=== PATIENT | female | born 1990 | race Caucasian/White ===

== ENCOUNTER 2020-06-25 12:07 | Emergency (ER) | payer OTHER ==
[2020-06-25 13:00] LABS: BASOPHIL % 0.2 % (0.0-0.4); Basophil (Absolute #) 0.02 (0-0.4); Eosinophil % 2.3 % (0.00-5.0); Eosinophil (Absolute #) 0.22 (0-0.5); Hemoglobin 11.6 gm/dl (12.0-16.0); Lymphocyte (Absolute #) 2.17 (1.0-4.6); Lymphocytes % 22.6 % (24.0-44.0); Mean Cell Volume 84.9 fl (78-100); Mean Corpuscular Hemoglobin 26.6 pg (26-32); Mean Corpuscular Hgb Concent. 31.4 g/dl (32-36); Mean Platelet Volume 8.8 fl (7.5-11.0); Monocyte (Absolute #) 0.61 (0.0-1.3); Monocytes % 6.3 % (0.0-12.0); Neutrophil % 68.6 % (36.0-66.0); Platelet Count 302 K/mm3 (150-450); Red Blood Count 4.36 M/mm3 (4.1-5.4); Red Cell Distribution Width 14.3 % (11.5-14.0); White Blood Count 9.6 K/mm3 (4.0-10.5)
[2020-06-25 13:24] LABS: ALBUMIN 3.9 g/dL (3.5-5.0); ALKALINE PHOSPHATASE 50 U/L (38-126); ANION GAP 10.7 MEQ/L (5-15); BLOOD UREA NITROGEN 11 mg/dL (7-17); CHLORIDE 103 mmol/L (98-107); Calcium 9.1 mg/dL (8.4-10.2); Carbon Dioxide 28 mmol/L (22-30); Creatinine 1 0.64 mg/dL (0.52-1.04); EST GLOMERULAR FILTRATION RATE > 60.0 ML/MIN; Glucose 98 mg/dL (74-106); HCG, Quantitative (Inhouse) 1452.1 mIU/ml; Potassium 3.9 mmol/L (3.5-5.1); SGOT/AST 19 U/L (14-36); SGPT/ALT 21 U/L (0-35); SODIUM 138 mmol/L (137-145)
[2020-06-25 14:10] LABS: Appearance SLIGHTLY CLOUDY (CLEAR); Bilirubin NEGATIVE (NEGATIVE); Blood NEGATIVE Ery/ul (0-5); Epithelial Cells RARE /HPF (FEW); Glucose NEGATIVE (NEGATIVE); Ketones NEGATIVE (NEGATIVE); Leukocyte Esterase TRACE (NEGATIVE); Mucus SLIGHT /HPF (NEGATIVE); Nitrite NEGATIVE (NEGATIVE); Protein,Urine Dip NEGATIVE (Negative); RBC 0-2 /HPF (0-2); Specific Gravity 1.016 (1.005-1.025); Urobilinogen NEGATIVE mg/dL (0-1)
[2020-06-25] MEDS ORDERED: GI COCKTAIL 45 ML (Maalox/Lidocaine) PO ONE (14:16)
[2020-06-25] MEDS ORDERED: MAALOX ES 30 ML UNIT DOSE ONE (14:18)
[2020-06-25] MEDS ORDERED: XYLOCAINE HCl Viscous ONE (14:18)
[2020-06-25 14:34] VITALS: BP 138/62; PULSE 80; O2SAT 98
[2020-06-25 14:45] LABS: ABO TYPING O; Antibody Screen NEGATIVE (NEGATIVE); RH TYPING POSITIVE
--- NOTE | 2020-06-25 14:47 | ERPHSYRPT ---
- History of Present Illness Time Seen by Provider: 06/25/20 12:38 Source: patient Exam Limitations: no limitations Patient Subjective Stated Complaint: -left sided pain Triage Nursing Assessment: Patient ambulated back to ED and transferred self to bed. Patient A+O X3. Patient's skin pink, warm and dry. Patient complains of left sided abdominal pain constant aching pain 5/10 for two weeks. Patient took test due to late period and had positive results. Patient had miscarriage with last and wants to get checked out. Physician History: 29 years old female presented in the ER with chief complaint of left upper quadrant and epigastric dull aching discomfort for the last 2 weeks intermitt ently lasting for few minutes to hour, aggravated with movements and relieved on its own. Denies any associated nausea or vomiting. No flank or lower abdominal pain. No urinary symptoms. Patient checked her home test x2 because she was 2 weeks late from her cycle and is positive and wants to get it confirmed. Denies any vaginal bleeding discharge, pelvic cramping/pain. Timing/Duration: week(s) (2), intermittent Severity: moderate Modifying Factors: Improves With: immobilization. Worsens With: movement Associated Symptoms: abdominal pain Allergies/Adverse Reactions: amoxicillin Allergy (Verified 06/25/20 12:18) sulfamethoxazole [From Octra] Allergy (Verified 06/25/20 12:18) trimethoprim [From Octra] Allergy (Verified 06/25/20 12:18) Home Medications: Armodafinil [Nuvigil] 1 tab PO DAILY 06/25/20 [History] Gabapentin 300 mg [Neurontin 300 mg] 1 tab PO HS 06/25/20 [History] Omeprazole 1 tab PO DAILY 06/25/20 [History] Sertraline HCl [Zoloft] 200 mg PO DAILY 06/25/20 [History] Hx Influenza Vaccination/Date Given: Yes Hx Pneumococcal Vaccination/Date Given: No Immunizations Up to Date: Yes Travel Risk - International Travel Have you traveled outside of the country in past 3 weeks: No - Coronavirus Screening Are you exhibiting any of the following symptoms?: No Close contact with a COVID-19 positive Pt in past 14-21 Days: No - Vaccine Status Have you recieved a Covid-19 vaccination: Yes [employer]: [employer] - Vaccination Dates Date of 2cond Vaccination (if applicable): 05/16/2020 - Review of Systems Constitutional: No Symptoms Eyes: No Symptoms Ears, Nose, & Throat: No Symptoms Respiratory: No Symptoms Cardiac: No Symptoms Abdominal/Gastrointestinal: Abdominal Pain Genitourinary Symptoms: No Symptoms Musculoskeletal: No Symptoms Skin: No Symptoms Neurological: No Symptoms Psychological: No Symptoms Endocrine: No Symptoms Hematologic/Lymphatic: No Symptoms Immunological/Allergic: No Symptoms - Past Medical History Pertinent Past Medical History: Yes Neurological History: Seizures ENT History: No Pertinent History Cardiac History: No Pertinent History Respiratory History: No Pertinent History Endocrine Medical History: No Pertinent History Musculoskeletal History: No Pertinent History GI Medical History: No Pertinent History History: No Pertinent History Psycho-Social History: Anxiety, Depression Female Reproductive Disorders: No Pertinent History Other Medical History: insomnia, miscarriage - Past Surgical History Past Surgical History: Yes Neuro Surgical History: No Pertinent History Cardiac: No Pertinent History Respiratory: No Pertinent History Gastrointestinal: Appendectomy Genitourinary: No Pertinent History Musculoskeletal: Orthopedic Surgery Female Surgical History: No Pertinent History Other Surgical History: Carpal tunnel release surgery - Social History Smoking Status: Current every day smoker How long have you smoked: years Exposure to second hand smoke: Yes Drug Use: none Patient Lives Alone: No - Female History Hx Last Menstrual Period: May 25, 2020 Hx Now: Yes - Nursing Vital Signs Nursing Vital Signs: Initial Vital Signs Temperature 97.0 F 06/25/20 12:20 Pulse Rate 86 06/25/20 12:20 Respiratory Rate 18 06/25/20 12:20 Blood Pressure 140/67 06/25/20 12:20 O2 Sat by Pulse Oximetry 96 06/25/20 12:20 Pain Scale Pain Intensity 3 - Physical Exam General Appearance: no apparent distress, alert, anxiety Eye Exam: PERRL/EOMI Ears, Nose, Throat Exam: normal ENT inspection, TMs normal, pharynx normal Neck Exam: normal inspection, non-tender, supple, full range of motion Respiratory Exam: normal breath sounds, lungs clear Cardiovascular Exam: regular rate/rhythm, normal heart sounds Gastrointestinal/Abdomen Exam: soft, normal bowel sounds, tenderness (Minimal tenderness left upper quadrant), No guarding, No rebound Back Exam: normal inspection, normal range of motion, No CVA tenderness Extremity Exam: normal inspection, normal range of motion Neurologic Exam: alert, oriented x 3, cooperative Skin Exam: normal color SpO2 Interpretation: normal SpO2: 98 O2 Delivery: Room Air Ordered Tests: Active Orders 24 hr Category Date Time Status CBC W DIFF Stat Lab 06/25/20 12:45 Completed CMP Stat Lab 06/25/20 12:45 Completed HCG QUALITATIVE,SERUM Stat Lab 06/25/20 12:45 Completed HCG, Quantitative (Inhouse) Stat Lab 06/25/20 12:45 Completed UA W/RFX UR CULTURE Stat Lab 06/25/20 12:31 Completed Medication Summary Discontinued Medications Generic Name Dose Route Start Last Admin Trade Name Freq PRN Reason Stop Dose Admin Al Hydrox/Mg Hydrox/Simethicone Confirm 06/25/20 14:18 Maalox Es 30 Ml Unit Dose Administered 06/25/20 14:19 Dose 30 ml .ROUTE .STK-MED ONE Lidocaine HCl Confirm 06/25/20 14:18 Xylocaine Hcl Viscous * Administered 06/25/20 14:19 Dose 15 ml .ROUTE .STK-MED ONE Magnesium Hydroxide 45 ml 06/25/20 14:16 06/25/20 14:19 Gi Cocktail 45 Ml (Maalox/Lidocaine) PO 06/25/20 14:17 45 ml STAT ONE Administration Lab/Rad Data: Laboratory Result Diagrams 06/25/20 12:45 06/25/20 12:45 Laboratory Results 06/25/20 06/25/20 06/25/20 Range/Units 12:45 12:45 12:45 WBC (4.0-10.5) K/mm3 RBC (4.1-5.4) M/mm3 Hgb (12.0-16.0) gm/dl Hct (35-47) % MCV (78-100) fl MCH (26-32) pg MCHC (32-36) g/dl RDW (11.5-14.0) % Plt Count (150-450) K/mm3 MPV (7.5-11.0) fl Gran % (36.0-66.0) % Eos # (Auto) (0-0.5) Absolute Lymphs (auto) (1.0-4.6) Absolute Monos (auto) (0.0-1.3) Lymphocytes % (24.0-44.0) % Monocytes % (0.0-12.0) % Eosinophils % (0.00-5.0) % Basophils % (0.0-0.4) % Absolute Granulocytes (1.4-6.9) Basophils # (0-0.4) Sodium 138 (137-145) mmol/L Potassium 3.9 (3.5-5.1) mmol/L Chloride 103 (98-107) mmol/L Carbon Dioxide 28 (22-30) mmol/L Anion Gap 10.7 (5-15) MEQ/L BUN 11 (7-17) mg/dL Creatinine 0.64 (0.52-1.04) mg/dL Estimated GFR > 60.0 ML/MIN Glucose 98 (74-106) mg/dL Calcium 9.1 (8.4-10.2) mg/dL Total Bilirubin 0.30 (0.2-1.3) mg/dL AST 19 (14-36) U/L ALT 21 (0-35) U/L Alkaline Phosphatase 50 (38-126) U/L Serum Total Protein 7.0 (6.3-8.2) g/dL Albumin 3.9 (3.5-5.0) g/dL Beta HCG, Quant 1452.1 mIU/ml Serum , Qual POSITIVE (Negative) Urine Color (YELLOW) Urine Appearance (CLEAR) Urine pH (5-6) Ur Specific [place] (1.005-1.025) Urine Protein (Negative) Urine Ketones (NEGATIVE) Urine Blood (0-5) Armando/ul Urine Nitrite (NEGATIVE) Urine Bilirubin (NEGATIVE) Urine Urobilinogen (0-1) mg/dL Ur Leukocyte Esterase (NEGATIVE) Urine WBC (Auto) (0-5) /HPF Urine RBC (Auto) (0-2) /HPF U Epithel Cells (Auto) (FEW) /HPF Urine Bacteria (Auto) (NEGATIVE) /HPF Urine Mucus (Auto) (NEGATIVE) /HPF Urine Culture Reflexed (NO) Urine Glucose (NEGATIVE) mg/dL ABO Group O Rh Factor POSITIVE Antibody Screen NEGATIVE (NEGATIVE) 06/25/20 06/25/20 Range/Units 12:45 12:31 WBC 9.6 (4.0-10.5) K/mm3 RBC 4.36 (4.1-5.4) M/mm3 Hgb 11.6 L (12.0-16.0) gm/dl Hct 37.0 (35-47) % MCV 84.9 (78-100) fl MCH 26.6 (26-32) pg MCHC 31.4 L (32-36) g/dl RDW 14.3 H (11.5-14.0) % Plt Count 302 (150-450) K/mm3 MPV 8.8 (7.5-11.0) fl Gran % 68.6 H (36.0-66.0) % Eos # (Auto) 0.22 (0-0.5) Absolute Lymphs (auto) 2.17 (1.0-4.6) Absolute Monos (auto) 0.61 (0.0-1.3) Lymphocytes % 22.6 L (24.0-44.0) % Monocytes % 6.3 (0.0-12.0) % Eosinophils % 2.3 (0.00-5.0) % Basophils % 0.2 (0.0-0.4) % Absolute Granulocytes 6.60 (1.4-6.9) Basophils # 0.02 (0-0.4) Sodium (137-145) mmol/L Potassium (3.5-5.1) mmol/L Chloride (98-107) mmol/L Carbon Dioxide (22-30) mmol/L Anion Gap (5-15) MEQ/L BUN (7-17) mg/dL Creatinine (0.52-1.04) mg/dL Estimated GFR ML/MIN Glucose (74-106) mg/dL Calcium (8.4-10.2) mg/dL Total Bilirubin (0.2-1.3) mg/dL AST (14-36) U/L ALT (0-35) U/L Alkaline Phosphatase (38-126) U/L Serum Total Protein (6.3-8.2) g/dL Albumin (3.5-5.0) g/dL Beta HCG, Quant mIU/ml Serum , Qual (Negative) Urine Color YELLOW (YELLOW) Urine Appearance SLIGHTLY CLOUDY (CLEAR) Urine pH 7.0 (5-6) Ur Specific [place] 1.016 (1.005-1.025) Urine Protein NEGATIVE (Negative) Urine Ketones NEGATIVE (NEGATIVE) Urine Blood NEGATIVE (0-5) Armando/ul Urine Nitrite NEGATIVE (NEGATIVE) Urine Bilirubin NEGATIVE (NEGATIVE) Urine Urobilinogen NEGATIVE (0-1) mg/dL Ur Leukocyte Esterase TRACE (NEGATIVE) Urine WBC (Auto) 3-5 (0-5) /HPF Urine RBC (Auto) 0-2 (0-2) /HPF U Epithel Cells (Auto) RARE (FEW) /HPF Urine Bacteria (Auto) NONE (NEGATIVE) /HPF Urine Mucus (Auto) SLIGHT (NEGATIVE) /HPF Urine Culture Reflexed NO (NO) Urine Glucose NEGATIVE (NEGATIVE) mg/dL ABO Group Rh Factor Antibody Screen (NEGATIVE) - Progress Progress: improved Progress Note: 06/25/20 14:45 She is given GI cocktail and her left upper quadrant discomfort is improved. She has a positive hCG qualitative followed by quant in 1000. She does not have any pelvic pain tenderness or cramping. I believe patient has acid reflux and will give her Pepcid to take as needed. She does not have any pain or vaginal bleeding, tachycardia, hypotension suggesting ectopic needing immediate ultrasound but would refer her outpatient with her OB Dr. Murphy to have ultrasound done at [facility]. Discussed signs symptoms of worsening needing return to ER which she seemed understanding. Stable for discharge. Counseled pt/family regarding: lab results, diagnosis, need for follow-up - Departure Departure Disposition: Extended Care Facility Clinical Impression: Qualifiers: Weeks of gestation: less than 8 weeks Qualified Code(s): Z3A.01 - Less than 8 weeks gestation of GERD (gastroesophageal reflux disease) Qualifiers: Esophagitis presence: without esophagitis Qualified Code(s): K21.9 - Gastro- esophageal reflux disease without esophagitis Condition: Stable Critical Care Time: No Referrals: DOCTOR,NO FAMILY [Primary Care Provider] - (Dr. Upton OB at [facility] Call tomorrow for appointment in the next few days.) Instructions: Ectopic (DC), Symptoms Additional Instructions: Drink plenty of fluids. Take Tylenol for pain only. Take Pepcid as needed for acid reflux. Do not take ibuprofen or any other NSAIDs. Follow-up with your primary OB for reevaluation. Call your primary care doctor in the morning for adjustment in routine medications according to safety. Return to ER for worsening pain or if develop vaginal bleeding discharge/cramping. Prescriptions: Famotidine 20 mg [Pepcid 20 MG] 20 mg PO BID PRN #60 tablet PRN Reason: Indigestion Vits W-Ca,Fe,FA(<1Mg) [] 1 each PO DAILY 90 Days #90 tablet
== END 2020-06-25 15:06 | disposition home or self-care (01) ==
LOC: ED 12:07
DX: R10.12 Left upper quadrant pain (principal); R10.13 Epigastric pain; K21.9 Gastro-esophageal reflux disease without esophagitis; Z3A.01 Less than 8 weeks gestation of pregnancy
CPT/HCPCS: 36415; 80053; 81001; 81025; 84702; 85025; 86850; 86900; 86901; 99283; 99291; A9270-GY

== ENCOUNTER 2020-07-10 14:20 | Emergency (ER) | payer OTHER ==
[2020-07-10 14:56] LABS: Absolute Neutrophil Ct (ANC) 8.16 (1.4-6.9); BASOPHIL % 0.2 % (0.0-0.4); Basophil (Absolute #) 0.02 (0-0.4); Eosinophil % 1.4 % (0.00-5.0); Eosinophil (Absolute #) 0.15 (0-0.5); Hemoglobin 12.9 gm/dl (12.0-16.0); Lymphocyte (Absolute #) 2.12 (1.0-4.6); Lymphocytes % 19.3 % (24.0-44.0); Mean Cell Volume 82.8 fl (78-100); Mean Corpuscular Hemoglobin 26.7 pg (26-32); Mean Corpuscular Hgb Concent. 32.3 g/dl (32-36); Mean Platelet Volume 8.4 fl (7.5-11.0); Monocyte (Absolute #) 0.54 (0.0-1.3); Monocytes % 4.9 % (0.0-12.0); Neutrophil % 74.2 % (36.0-66.0); Platelet Count 299 K/mm3 (150-450); Red Blood Count 4.83 M/mm3 (4.1-5.4)
[2020-07-10 15:08] LABS: ALBUMIN 4.4 g/dL (3.5-5.0); ALKALINE PHOSPHATASE 62 U/L (38-126); ANION GAP 12.9 MEQ/L (5-15); BLOOD UREA NITROGEN 9 mg/dL (7-17); CHLORIDE 102 mmol/L (98-107); Calcium 9.7 mg/dL (8.4-10.2); Carbon Dioxide 26 mmol/L (22-30); Creatinine 1 0.55 mg/dL (0.52-1.04); EST GLOMERULAR FILTRATION RATE > 60.0 ML/MIN; Potassium 4.1 mmol/L (3.5-5.1); SGOT/AST 18 U/L (14-36); SGPT/ALT 19 U/L (0-35); SODIUM 138 mmol/L (137-145); Total Protein 7.7 g/dL (6.3-8.2)
[2020-07-10 15:09] LABS: Appearance CLOUDY (CLEAR); Bacteria FEW /HPF (NEGATIVE); Bilirubin NEGATIVE (NEGATIVE); Blood NEGATIVE Ery/ul (0-5); Epithelial Cells MANY /HPF (FEW); Glucose NEGATIVE (NEGATIVE); Ketones NEGATIVE (NEGATIVE); Leukocyte Esterase MODERATE (NEGATIVE); Mucus SLIGHT /HPF (NEGATIVE); Nitrite NEGATIVE (NEGATIVE); Protein,Urine Dip NEGATIVE (Negative); RBC 0-2 /HPF (0-2); Specific Gravity 1.017 (1.005-1.025); Urobilinogen NEGATIVE mg/dL (0-1)
[2020-07-10 15:15] LABS: Glucose 95 mg/dL (74-106)
--- NOTE | 2020-07-10 15:55 | ERPHSYRPT ---
- History of Present Illness Time Seen by Provider: 07/10/20 14:50 Source: patient Exam Limitations: no limitations Patient Subjective Stated Complaint: pt here for vomiting, and lightheaded. she states she is only vomiting x2 days, no vaginal bleeding or cramps Triage Nursing Assessment: pt alert, walked in, resp easy, skin w/d/p. abd soft, Physician History: Patient is a 29-year-old female who is currently 7 weeks presents to our ED with complaints of vomiting and lightheadedness. Patient states she vomited 2 times. Patient states she is eating well however only had a granola bar this morning. No change in urine output. No fever. No vaginal discharge or pelvic pain. Patient symptoms are mild in intensity. No specific worsening improving factors. Patient denies swelling of her feet. Patient voices no other complaints or concerns at this time. Timing/Duration: today Severity: moderate Modifying Factors: Improves With: nothing Associated Symptoms: No abdominal pain, No heartburn, No diaphoresis, No cough, No chills, No chest pain, No syncope, No seizure, No weakness Allergies/Adverse Reactions: amoxicillin Allergy (Verified 07/10/20 14:39) sulfamethoxazole [From ] Allergy (Verified 07/10/20 14:39) trimethoprim [From ] Allergy (Verified 07/10/20 14:39) Home Medications: Sertraline HCl [Zoloft] 200 mg PO DAILY 06/25/20 [History] Hx Influenza Vaccination/Date Given: Yes Hx Pneumococcal Vaccination/Date Given: No Immunizations Up to Date: Yes Travel Risk - International Travel Have you traveled outside of the country in past 3 weeks: No - Coronavirus Screening Are you exhibiting any of the following symptoms?: No Close contact with a COVID-19 positive Pt in past 14-21 Days: No - Vaccine Status Have you recieved a Covid-19 vaccination: Yes [employer]: [employer] - Vaccination Dates Date of 2cond Vaccination (if applicable): 05/16/20 - Review of Systems Constitutional: No Symptoms, No Fever, No Chills Eyes: No Symptoms Ears, Nose, & Throat: No Symptoms Respiratory: No Symptoms, No Cough, No Dyspnea Cardiac: No Symptoms, No Chest Pain, No Edema, No Syncope Abdominal/Gastrointestinal: No Symptoms, No Abdominal Pain, No Nausea, No Vomiting, No Diarrhea Genitourinary Symptoms: No Symptoms, No Dysuria Musculoskeletal: No Symptoms, No Back Pain, No Neck Pain Skin: No Symptoms, No Rash Neurological: No Symptoms, No Dizziness, No Focal Weakness, No Sensory Changes Psychological: No Symptoms Endocrine: No Symptoms Hematologic/Lymphatic: No Symptoms Immunological/Allergic: No Symptoms All Other Systems: Reviewed and Negative - Past Medical History Pertinent Past Medical History: Yes Neurological History: Seizures ENT History: No Pertinent History Cardiac History: No Pertinent History Respiratory History: No Pertinent History Endocrine Medical History: No Pertinent History Musculoskeletal History: No Pertinent History GI Medical History: No Pertinent History History: No Pertinent History Psycho-Social History: Anxiety, Depression Female Reproductive Disorders: No Pertinent History Other Medical History: insomnia, miscarriage - Past Surgical History Past Surgical History: Yes Neuro Surgical History: No Pertinent History Cardiac: No Pertinent History Respiratory: No Pertinent History Gastrointestinal: Appendectomy Genitourinary: No Pertinent History Musculoskeletal: Orthopedic Surgery Female Surgical History: No Pertinent History Other Surgical History: Carpal tunnel release surgery - Social History Smoking Status: Current every day smoker How long have you smoked: years Exposure to second hand smoke: Yes Drug Use: none Patient Lives Alone: No - Female History Hx Last Menstrual Period: may 25 Hx Now: Yes - Nursing Vital Signs Nursing Vital Signs: Initial Vital Signs Temperature 97.8 F 07/10/20 14:32 Pulse Rate 77 07/10/20 14:32 Respiratory Rate 18 07/10/20 14:32 Blood Pressure 122/78 07/10/20 14:32 O2 Sat by Pulse Oximetry 98 07/10/20 14:32 Pain Scale Pain Intensity 0 - Physical Exam General Appearance: no apparent distress, alert Eye Exam: PERRL/EOMI, eyes nml inspection Ears, Nose, Throat Exam: normal ENT inspection, TMs normal, pharynx normal, moist mucous membranes Neck Exam: normal inspection, non-tender, supple, full range of motion Respiratory Exam: normal breath sounds, lungs clear, No respiratory distress Cardiovascular Exam: regular rate/rhythm, normal heart sounds, normal peripheral pulses Gastrointestinal/Abdomen Exam: soft, normal bowel sounds, No tenderness, No mass Back Exam: normal inspection, normal range of motion, No CVA tenderness, No vertebral tenderness Extremity Exam: normal inspection, normal range of motion, pelvis stable Neurologic Exam: alert, oriented x 3, cooperative, normal mood/affect, nml cerebellar function, nml station & gait, sensation nml, No motor deficits Skin Exam: normal color, warm, dry, No rash Lymphatic Exam: No adenopathy SpO2 Interpretation: normal SpO2: 98 O2 Delivery: Room Air - Course Nursing assessment & vital signs reviewed: Yes EKG Interpreted by Me: RATE (57), Sinus Rhythm, NORMAL AXIS, NORMAL INTERVALS Ordered Tests: Active Orders 24 hr Category Date Time Status IV Insertion STAT Care 07/10/20 15:54 Active CBC W DIFF Stat Lab 07/10/20 14:53 Completed CMP Stat Lab 07/10/20 14:53 Completed CULTURE,URINE Stat Lab 07/10/20 14:47 Received HCG, Quantitative (Inhouse) Stat Lab 07/10/20 15:54 Ordered LIPASE Stat Lab 07/10/20 15:54 Ordered TROPONIN Q3H Lab 07/10/20 16:00 Completed TROPONIN Q3H Lab 07/10/20 19:00 Ordered TROPONIN Q3H Lab 07/10/20 22:00 Ordered TROPONIN Q3H Lab 07/11/20 01:00 Ordered TROPONIN Q3H Lab 07/11/20 04:00 Ordered UA W/RFX UR CULTURE Stat Lab 07/10/20 14:47 Completed Medication Summary Generic Name Dose Route Start Last Admin Trade Name Freq PRN Reason Stop Dose Admin Sodium Chloride 1,000 mls @ 100 mls/hr 07/10/20 16:00 07/10/20 16:18 Sodium Chloride 0.9% 1000 Ml IV 08/09/20 15:59 100 mls/hr .Q10H MO Administration Discontinued Medications Generic Name Dose Route Start Last Admin Trade Name Freq PRN Reason Stop Dose Admin Nitrofurantoin Macrocrystals 100 mg 07/10/20 17:32 Macrobid 100mg Capsule PO 07/10/20 17:33 ONCE STA Lab/Rad Data: Laboratory Result Diagrams 07/10/20 14:53 07/10/20 14:53 Laboratory Results 07/10/20 07/10/20 07/10/20 Range/Units 16:00 14:53 14:53 WBC 11.0 H (4.0-10.5) K/mm3 RBC 4.83 (4.1-5.4) M/mm3 Hgb 12.9 (12.0-16.0) gm/dl Hct 40.0 (35-47) % MCV 82.8 (78-100) fl MCH 26.7 (26-32) pg MCHC 32.3 (32-36) g/dl RDW 14.0 (11.5-14.0) % Plt Count 299 (150-450) K/mm3 MPV 8.4 (7.5-11.0) fl Gran % 74.2 H (36.0-66.0) % Eos # (Auto) 0.15 (0-0.5) Absolute Lymphs (auto) 2.12 (1.0-4.6) Absolute Monos (auto) 0.54 (0.0-1.3) Lymphocytes % 19.3 L (24.0-44.0) % Monocytes % 4.9 (0.0-12.0) % Eosinophils % 1.4 (0.00-5.0) % Basophils % 0.2 (0.0-0.4) % Absolute Granulocytes 8.16 H (1.4-6.9) Basophils # 0.02 (0-0.4) Sodium 138 (137-145) mmol/L Potassium 4.1 (3.5-5.1) mmol/L Chloride 102 (98-107) mmol/L Carbon Dioxide 26 (22-30) mmol/L Anion Gap 12.9 (5-15) MEQ/L BUN 9 (7-17) mg/dL Creatinine 0.55 (0.52-1.04) mg/dL Estimated GFR > 60.0 ML/MIN Glucose 95 (74-106) mg/dL Calcium 9.7 (8.4-10.2) mg/dL Total Bilirubin 0.30 (0.2-1.3) mg/dL AST 18 (14-36) U/L ALT 19 (0-35) U/L Alkaline Phosphatase 62 (38-126) U/L Troponin I < 0.012 (0.000-0.034) ng/mL Serum Total Protein 7.7 (6.3-8.2) g/dL Albumin 4.4 (3.5-5.0) g/dL Urine Color (YELLOW) Urine Appearance (CLEAR) Urine pH (5-6) Ur Specific [place] (1.005-1.025) Urine Protein (Negative) Urine Ketones (NEGATIVE) Urine Blood (0-5) Armando/ul Urine Nitrite (NEGATIVE) Urine Bilirubin (NEGATIVE) Urine Urobilinogen (0-1) mg/dL Ur Leukocyte Esterase (NEGATIVE) Urine WBC (Auto) (0-5) /HPF Urine RBC (Auto) (0-2) /HPF U Epithel Cells (Auto) (FEW) /HPF Urine Bacteria (Auto) (NEGATIVE) /HPF Urine Mucus (Auto) (NEGATIVE) /HPF Urine Culture Reflexed (NO) Urine Glucose (NEGATIVE) mg/dL 07/10/20 Range/Units 14:47 WBC (4.0-10.5) K/mm3 RBC (4.1-5.4) M/mm3 Hgb (12.0-16.0) gm/dl Hct (35-47) % MCV (78-100) fl MCH (26-32) pg MCHC (32-36) g/dl RDW (11.5-14.0) % Plt Count (150-450) K/mm3 MPV (7.5-11.0) fl Gran % (36.0-66.0) % Eos # (Auto) (0-0.5) Absolute Lymphs (auto) (1.0-4.6) Absolute Monos (auto) (0.0-1.3) Lymphocytes % (24.0-44.0) % Monocytes % (0.0-12.0) % Eosinophils % (0.00-5.0) % Basophils % (0.0-0.4) % Absolute Granulocytes (1.4-6.9) Basophils # (0-0.4) Sodium (137-145) mmol/L Potassium (3.5-5.1) mmol/L Chloride (98-107) mmol/L Carbon Dioxide (22-30) mmol/L Anion Gap (5-15) MEQ/L BUN (7-17) mg/dL Creatinine (0.52-1.04) mg/dL Estimated GFR ML/MIN Glucose (74-106) mg/dL Calcium (8.4-10.2) mg/dL Total Bilirubin (0.2-1.3) mg/dL AST (14-36) U/L ALT (0-35) U/L Alkaline Phosphatase (38-126) U/L Troponin I (0.000-0.034) ng/mL Serum Total Protein (6.3-8.2) g/dL Albumin (3.5-5.0) g/dL Urine Color YELLOW (YELLOW) Urine Appearance CLOUDY (CLEAR) Urine pH 6.0 (5-6) Ur Specific [place] 1.017 (1.005-1.025) Urine Protein NEGATIVE (Negative) Urine Ketones NEGATIVE (NEGATIVE) Urine Blood NEGATIVE (0-5) Armando/ul Urine Nitrite NEGATIVE (NEGATIVE) Urine Bilirubin NEGATIVE (NEGATIVE) Urine Urobilinogen NEGATIVE (0-1) mg/dL Ur Leukocyte Esterase MODERATE (NEGATIVE) Urine WBC (Auto) 16-25 (0-5) /HPF Urine RBC (Auto) 0-2 (0-2) /HPF U Epithel Cells (Auto) MANY (FEW) /HPF Urine Bacteria (Auto) FEW (NEGATIVE) /HPF Urine Mucus (Auto) SLIGHT (NEGATIVE) /HPF Urine Culture Reflexed YES (NO) Urine Glucose NEGATIVE (NEGATIVE) mg/dL - Progress Progress: improved Progress Note: Patient reassessed. She states she feels hungry wants to eat. Orthostatics were negative. Patient currently asymptomatic. Vitals are stable. Labs are normal. IV fluids infused. EKG normal sinus rhythm. Patient's fetus is 7 weeks. She is having no pelvic or vaginal complaints. We will discharge patient home at this time. Patient will follow up with her OB this week for further evaluation and treatment. UA suggestive of UTI. Will give patient a dose of Macrobid prior to discharge. A prescription for the same will be forwarded to patient's pharmacy. Patient has plans to follow-up with her OB physician. Patient given contact number Dr. Snow our no doc for the day in the event that she cannot follow-up with her OB physician. 07/10/20 17:29 07/10/20 17:34 Counseled pt/family regarding: lab results, diagnosis, need for follow-up - Departure Departure Disposition: Home Clinical Impression: UTI (urinary tract infection), Lightheadedness Condition: Stable Critical Care Time: No Referrals: DOCTOR,NO FAMILY [Primary Care Provider] - MANJINDER SNOW MD [ACTIVE STAFF] - Additional Instructions: Discharge/Care Plan SHARRON CHERRY was seen on 07/10/20 in the Emergency Room. The patient was counseled regarding Diagnosis,Lab results, Imaging studies, need for follow up and when to return to the Emergency Room. Prescriptions given: Discharge Note I have spoken with the patient and/or caregivers. I have explained the patient's condition, diagnosis and treatment plan based on the information available to me at this time. I have answered the patient's and/or caregiver's questions and addressed any concerns. The patient and/or caregivers have as good understanding of the patient's diagnosis, condition and treatment plan as can be expected at this point. The vital signs have been stable. The patient's condition is stable and appropriate for discharge from the emergency department. The patient will pursue further outpatient evaluation with the primary care physician or other designated or consulting physician as outlined in the discharge instructions. The patient and/or caregivers are agreeable to this plan of care and follow-up instructions have been explained in detail. The patient and/or caregivers have received these instruction. The patient/and or caregivers are aware that any significant change in condition or worsening of symptoms should prompt an immediate return to this or the closest emergency department or call 911. Prescriptions: Nitrofurantoin Macro 100 mg [Macrobid 100MG Capsule] 100 mg PO BID 7 Days #14 capsule
[2020-07-10] MEDS ORDERED: Sodium Chloride 0.9% 1000 ML 1,000 ML IV SCH (16:00)
[2020-07-10] MEDS ORDERED: Sodium Chloride 0.9% 1000 ML 1,000 ML ONE (16:17)
[2020-07-10 17:27] LABS: LIPASE 40 U/L (23-300)
[2020-07-10] MEDS ORDERED: Macrobid 100MG Capsule PO STA (17:32)
[2020-07-10] MEDS ORDERED: Macrobid 100MG Capsule ONE (17:43)
[2020-07-10 17:52] LABS: HCG, Quantitative (Inhouse) 37174 mIU/ml
[2020-07-10 18:00] VITALS: BP 110/78; PULSE 59; O2SAT 99
== END 2020-07-10 18:20 | disposition home or self-care (01) ==
LOC: ED 14:20
DX: N39.0 Urinary tract infection, site not specified (principal); R42 Dizziness and giddiness
CPT/HCPCS: 36000; 36415; 80053; 81001; 83690; 84484; 84702; 85025; 87086; 93005; 96360; 96361; 99284; A9270-GY

== ENCOUNTER 2021-01-30 16:00 | Observation (INO) | payer OTHER ==
[2021-01-30 17:53] LABS: Appearance CLOUDY (CLEAR); Bacteria RARE /HPF (NEGATIVE); Bilirubin NEGATIVE (NEGATIVE); Blood NEGATIVE Ery/ul (0-5); Epithelial Cells MODERATE /HPF (FEW); Glucose NEGATIVE (NEGATIVE); Ketones NEGATIVE (NEGATIVE); Leukocyte Esterase MODERATE (NEGATIVE); Mucus SLIGHT /HPF (NEGATIVE); Nitrite NEGATIVE (NEGATIVE); Protein,Urine Dip 30 (Negative); RBC 0-2 /HPF (0-2); Specific Gravity 1.021 (1.005-1.025); Urobilinogen NEGATIVE mg/dL (0-1)
[2021-01-30 19:03] LABS: INFLUENZA A NEGATIVE (NEGATIVE); INFLUENZA B NEGATIVE (NEGATIVE); RESPIRATORY SYNCTIAL VIRUS NEGATIVE (Negative); SARS-CoV-2 Xpert Express NEGATIVE (NEGATIVE)
[2021-01-30 19:28] VITALS: BP 127/67; PULSE 75
== END 2021-01-30 19:55 | disposition home or self-care (01) ==
LOC: UNDOADMOB 16:00 → MED SURG 16:00 → UNDODISOB 19:55
PROVIDERS: ADMIT Family Medicine; ATTEND Family Medicine
DX: Z34.83 Encounter for supervision of other normal pregnancy, third trimester (principal); Z3A.36 36 weeks gestation of pregnancy
CPT/HCPCS: 0241U; 81001; 87086; G0378

== ENCOUNTER 2022-01-15 17:48 | Emergency (ER) | payer OTHER ==
[2022-01-15] MEDS ORDERED: TYLENOL EXTRA STRENGTH 500 MG PO STA (18:21)
[2022-01-15] MEDS ORDERED: TYLENOL EXTRA STRENGTH 500 MG ONE (18:22)
[2022-01-15 18:25] VITALS: BP 134/91; PULSE 106; O2SAT 96
--- NOTE | 2022-01-15 18:28 | ERPHSYRPT ---
- History of Present Illness Source: patient Exam Limitations: no limitations Timing/Duration: today Fever Severity: moderate Fever Therapy ANTHROPOLOGICAL LINGUIST: none Associated Symptoms: cough, headache, muscle aches Hx Influenza Vaccination/Date Given: Yes Hx Pneumococcal Vaccination/Date Given: No <AAMIR KEYES - Last Filed: 01/15/22 18:23> <ARLETSUSAN - Last Filed: 01/15/22 19:19> - History of Present Illness Time Seen by Provider: 01/15/22 18:23 Physician History: Patient is a 31-year-old female mother of an [id number] child who presents with a complaint of fever body aches runny nose and cough. She has a father who had been sick and diagnosed today with COVID that she had seen over the weekend. She presents with her who has no symptoms but wishes to be checked as well and her [id number] son who has a fever greater than 100. (AAMIR KEYES) Allergies/Adverse Reactions: amoxicillin Allergy (Verified 01/15/22 18:25) sulfamethoxazole [From Septra] Allergy (Verified 01/15/22 18:25) trimethoprim [From Octra] Allergy (Verified 01/15/22 18:25) Home Medications: Sertraline HCl [Zoloft] 200 mg PO DAILY 06/25/20 [History] Gabapentin [Neurontin ] 100 mg PO BID PRN 01/15/22 [History] Gabapentin [Neurontin ] 300 mg PO HS 01/15/22 [History] Quetiapine Fumarate 100 mg [Seroquel 100 MG] 100 mg PO HS 01/15/22 [History] Travel Risk - Vaccine Status Have you recieved a Covid-19 vaccination: Yes [employer]: [employer] - Vaccination Dates Date of 2cond Vaccination (if applicable): 05/16/20 <AAMIR KEYES - Last Filed: 01/15/22 18:23> - Review of Systems Constitutional: Fever, Chills Eyes: No Symptoms Ears, Nose, & Throat: Nose Congestion Respiratory: Cough Cardiac: No Chest Pain, No Edema, No Syncope Abdominal/Gastrointestinal: No Abdominal Pain, No Nausea, No Vomiting, No Diarrhea Genitourinary Symptoms: No Symptoms Musculoskeletal: No Back Pain, No Neck Pain Skin: No Rash Neurological: No Dizziness, No Focal Weakness, No Sensory Changes Psychological: No Symptoms Endocrine: No Symptoms All Other Systems: Reviewed and Negative <AAMIR KEYES - Last Filed: 01/15/22 18:23> - Past Medical History Pertinent Past Medical History: Yes Neurological History: Seizures ENT History: No Pertinent History Cardiac History: No Pertinent History Respiratory History: No Pertinent History Endocrine Medical History: No Pertinent History Musculoskeletal History: No Pertinent History GI Medical History: No Pertinent History History: No Pertinent History Psycho-Social History: Anxiety, Depression Female Reproductive Disorders: No Pertinent History Other Medical History: insomnia, miscarriage - Past Surgical History Past Surgical History: Yes Neuro Surgical History: No Pertinent History Cardiac: No Pertinent History Respiratory: No Pertinent History Gastrointestinal: Appendectomy Genitourinary: No Pertinent History Musculoskeletal: Orthopedic Surgery Female Surgical History: No Pertinent History Other Surgical History: Carpal tunnel release surgery - Social History Smoking Status: Current every day smoker How long have you smoked: years Exposure to second hand smoke: Yes Drug Use: none Patient Lives Alone: No <CONRADAAMIR ARROYO - Last Filed: 01/15/22 18:23> - Physical Exam General Appearance: no apparent distress, mild distress, alert Eye Exam: PERRL/EOMI ENT Exam: normal ENT inspection, No pharyngeal erythema, No tonsillar exudate Neck Exam: supple, full range of motion, No meningismus Respiratory Exam: normal breath sounds, lungs clear, no respiratory distress Cardiovascular/Chest Exam: normal heart sounds, regular rate/rhythm, No murmur, No edema Gastrointestinal/Abdominal Exam: soft, non tender, no distention Extremity Exam: non-tender, normal range of motion, normal inspection, normal capillary refill Neurologic Exam: alert, oriented x 3, cooperative, nurse prn II-XII nml as tested, normal mood/affect, sensation nml, No motor deficits Skin Exam: normal color, warm, dry, No rash SpO2 Interpretation: normal O2 Delivery: Room Air <AAMIR KEYES - Last Filed: 01/15/22 18:23> - Nursing Vital Signs Nursing Vital Signs: Initial Vital Signs Temperature 100.6 F 01/15/22 18:14 Pulse Rate 106 H 01/15/22 18:14 Blood Pressure 134/91 01/15/22 18:14 O2 Sat by Pulse Oximetry 96 01/15/22 18:14 Pain Scale Pain Intensity 8 - Course Nursing assessment & vital signs reviewed: Yes <AAMIR KEYES - Last Filed: 01/15/22 18:23> Ordered Tests: Medication Summary Discontinued Medications Generic Name Dose Route Start Last Admin Trade Name James PRN Reason Stop Dose Admin Acetaminophen 1,000 mg 01/15/22 18:21 01/15/22 18:29 Acetaminophen 500 Mg Tablet PO 01/15/22 18:22 1,000 mg STAT STA Administration Acetaminophen Confirm 01/15/22 18:22 Acetaminophen 500 Mg Tablet Administered 01/15/22 18:23 Dose 1,000 mg .ROUTE .[employer] Lab/Rad Data: Laboratory Results 01/15/22 Range/Units 18:01 Influenza Type A Ag NEGATIVE (NEGATIVE) Influenza Type B Ag NEGATIVE (NEGATIVE) RSV (PCR) NEGATIVE (Negative) SARS-CoV-2 (PCR) POSITIVE A (NEGATIVE) - Progress Progress: unchanged <AAMIR KEYES - Last Filed: 01/15/22 18:23> - Progress Counseled pt/family regarding: lab results, diagnosis, need for follow-up <SUSAN LI - Last Filed: 01/15/22 19:19> - Progress Progress Note: Patient endorsed to Dr. Li at approximately [address] Keyes. Patient is COVID-positive. We discussed symptomatic conservative care. No indication for further work-up. Patient feels well. Vital stable. Will discharge home. Patient understands importance of quarantining. Patient agrees to follow-up with the primary care doctor within 48 hours for evaluation. Portions of this note were created with voice recognition technology. There may be grammatical, spelling, punctuation or sound alike errors 01/15/22 19:18 (SUSAN LI) - Departure Departure Disposition: Home Critical Care Time: No <AAMIR KEYES - Last Filed: 01/15/22 18:23> <SUSAN LI - Last Filed: 01/15/22 19:19> - Departure Clinical Impression: Viral illness, COVID-19 Condition: Stable Referrals: SLY JOHNSON MD [Primary Care Provider] - Follow up/PCP as directed Additional Instructions: Discharge/Care Plan SHARRON CHERRY was seen on 01/15/22 in the Emergency Room. The patient was counseled regarding Diagnosis,Lab results, Imaging studies, need for follow up and when to return to the Emergency Room. Prescriptions given: Discharge Note I have spoken with the patient and/or caregivers. I have explained the patient's condition, diagnosis and treatment plan based on the information available to me at this time. I have answered the patient's and/or caregiver's questions and addressed any concerns. The patient and/or caregivers have as good understanding of the patient's diagnosis, condition and treatment plan as can be expected at this point. The vital signs have been stable. The patient's condition is stable and appropriate for discharge from the emergency department. The patient will pursue further outpatient evaluation with the primary care physician or other designated or consulting physician as outlined in the discharge instructions. The patient and/or caregivers are agreeable to this plan of care and follow-up instructions have been explained in detail. The patient and/or caregivers have received these instruction. The patient/and or caregivers are aware that any significant change in condition or worsening of symptoms should prompt an immediate return to this or the closest emergency department or call 911.
[2022-01-15 18:45] LABS: INFLUENZA A NEGATIVE (NEGATIVE); INFLUENZA B NEGATIVE (NEGATIVE); RESPIRATORY SYNCTIAL VIRUS NEGATIVE (Negative)
[2022-01-15 19:06] LABS: SARS-CoV-2 Xpert Express POSITIVE (NEGATIVE)
== END 2022-01-15 19:35 | disposition home or self-care (01) ==
LOC: ED 17:48
DX: U07.1 COVID-19 (principal); R50.9 Fever, unspecified; M79.10 Myalgia, unspecified site; R05.9 Cough, unspecified; Z20.822 Contact with and (suspected) exposure to COVID-19; Z72.0 Tobacco use; Z79.899 Other long term (current) drug therapy
CPT/HCPCS: 0241U; 99282; A9270-GY

== ENCOUNTER 2022-03-31 11:10 | Emergency (ER) | payer OTHER ==
[2022-03-31 11:45] VITALS: O2SAT 98
--- NOTE | 2022-03-31 11:57 | ERPHSYRPT ---
- History of Present Illness Time Seen by Provider: 03/31/22 11:52 Source: patient Exam Limitations: no limitations Patient Subjective Stated Complaint: C/O right knee pain. 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 Patient states she has been in pain since she got off of work morning. Patient indicates that she had a miniscus repair to right knee approx 3 months ago and that her current pain reminds her of that same pain and she is afraid she has retorn the miniscus. Triage Nursing Assessment: Patient ambulated back to ER with slow gait. SHe is alert and oriented. No SOB. Right knee and Right foot more swollen than left. Pedal pulses present. 2 small green fading bruises noted to right knee. Skin intact to knee. Patient can bend a knee independently. Physician History: C/O right knee pain. 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 Patient states she has been in pain since she got off of work morning. Patient indicates that she had a miniscus repair to right knee approx 3 months ago and that her current pain reminds her of that same pain and she is afraid she has retorn the meniscus. Method of Injury: twisted Occurred: this morning Severity of Pain-Max: mild Severity of Pain-Current: mild Lower Extremities Pain: knee: right Modifying Factors: Improves With: nothing Associated Symptoms: none Allergies/Adverse Reactions: amoxicillin Allergy (Verified 03/31/22 11:29) sulfamethoxazole [From Septra] Allergy (Verified 03/31/22 11:29) trimethoprim [From Septra] Allergy (Verified 03/31/22 11:29) Home Medications: Sertraline HCl [Zoloft] 100 mg PO BID 06/25/20 [History] Gabapentin [Neurontin ] 100 mg PO BID PRN 01/15/22 [History] Gabapentin [Neurontin ] 300 mg PO HS 01/15/22 [History] Hx Tetanus, Diphtheria Vaccination/Date Given: Yes Hx Influenza Vaccination/Date Given: No Hx Pneumococcal Vaccination/Date Given: No Immunizations Up to Date: Yes Travel Risk - International Travel Have you traveled outside of the country in past 3 weeks: No - Coronavirus Screening Are you exhibiting any of the following symptoms?: No Close contact with a COVID-19 positive Pt in past 14-21 Days: No - Vaccine Status Have you recieved a Covid-19 vaccination: Yes Clinical Quality Assurance Associate: [email or web address] - Vaccination Dates Date of 2cond Vaccination (if applicable): 05/16/20 - Review of Systems Constitutional: No Fever, No Chills Eyes: No Symptoms Ears, Nose, & Throat: No Symptoms Respiratory: No Cough, No Dyspnea Cardiac: No Chest Pain, No Edema, No Syncope Abdominal/Gastrointestinal: No Abdominal Pain, No Nausea, No Vomiting, No Diarrhea Genitourinary Symptoms: No Dysuria Musculoskeletal: Joint Pain (right knee pain), No Back Pain, No Neck Pain Skin: No Rash Neurological: No Dizziness, No Focal Weakness, No Sensory Changes Psychological: No Symptoms Endocrine: No Symptoms All Other Systems: Reviewed and Negative - Past Medical History Pertinent Past Medical History: Yes Neurological History: No Pertinent History ENT History: No Pertinent History Cardiac History: No Pertinent History Respiratory History: No Pertinent History Endocrine Medical History: No Pertinent History Musculoskeletal History: No Pertinent History GI Medical History: Gallbladder Disease History: No Pertinent History Psycho-Social History: Anxiety, Depression Female Reproductive Disorders: No Pertinent History Other Medical History: insomnia, miscarriage - Past Surgical History Past Surgical History: Yes Neuro Surgical History: No Pertinent History Cardiac: No Pertinent History Respiratory: No Pertinent History Gastrointestinal: Cholecystectomy Genitourinary: No Pertinent History Musculoskeletal: Orthopedic Surgery Female Surgical History: No Pertinent History Other Surgical History: Carpal tunnel release surgery, right miniscus repair - Social History Smoking Status: Never smoker How long have you smoked: years Exposure to second hand smoke: Yes Drug Use: none Patient Lives Alone: No - Female History Hx Now: No - Nursing Vital Signs Nursing Vital Signs: Initial Vital Signs Temperature 98 F 03/31/22 11:30 Pulse Rate 65 03/31/22 11:30 Respiratory Rate 18 03/31/22 11:30 Blood Pressure 129/78 03/31/22 11:30 O2 Sat by Pulse Oximetry 98 03/31/22 11:30 Pain Scale Pain Intensity 7 - Physical Exam General Appearance: alert Eyes, Ears, Nose, Throat Exam: moist mucous membranes Neck Exam: non-tender, supple Cardiovascular/Respiratory Exam: chest non-tender, normal breath sounds, regular rate/rhythm, no respiratory distress Gastrointestinal/Abdominal Exam: non-tender, guarding Back Exam: normal inspection, No vertebral tenderness Hips Exam: bilateral: non-tender, normal inspection, normal range of motion Legs Exam: bilateral leg: non-tender, normal inspection, normal range of motion Knees Exam: right knee: soft tissue tenderness, swelling, left knee: non-tender, normal inspection, normal range of motion, bilateral knee: no evidence of injury Ankle Exam: bilateral ankle: non-tender, normal inspection, normal range of motion, no evidence of injury Foot Exam: bilateral foot: non-tender, normal inspection, normal range of motion, no evidence of injury Neuro/Tendon Exam: normal sensation, normal motor functions Mental Status Exam: alert, oriented x 3, cooperative Skin Exam: normal color, warm, dry SpO2: 98 - Course Nursing assessment & vital signs reviewed: Yes - Radiology Exams Knee X-ray Interpretation: Reviewed by me, Negative, No Fracture, No Subluxation Ordered Tests: Active Orders 24 hr Category Date Time Status KNEE (3 VIEWS) Stat Exams 03/31/22 11:38 Ordered - Progress Progress: unchanged Counseled pt/family regarding: diagnosis, need for follow-up (with orthopedics on friday) Medical Desision Making - Diagnostic Testing Diagnostic Testing: Diagnostic tests were ordered,analyzed, and reviewed by me and used in my medical decision making for this patient. Radiologic studies (if ordered) were read by me initially then discussed with the radiologist . - Risk of complications Minimal Risk: Minimal risk of morbidity - Departure Departure Disposition: Home Clinical Impression: Right knee pain Qualifiers: Chronicity: acute Qualified Code(s): M25.561 - Pain in right knee Condition: Stable Critical Care Time: No Referrals: SLY JOHNSON MD [Primary Care Provider] - Follow up/PCP as directed Instructions: Knee Pain (DC) Additional Instructions: Discharge/Care Plan SHARRON CHERRY was seen on 03/31/22 in the Emergency Room. The patient was counseled regarding Diagnosis,Lab results, Imaging studies, need for follow up and when to return to the Emergency Room. Prescriptions given: Discharge Note I have spoken with the patient and/or caregivers. I have explained the patient's condition, diagnosis and treatment plan based on the information available to me at this time. I have answered the patient's and/or caregiver's questions and addressed any concerns. The patient and/or caregivers have as good understanding of the patient's diagnosis, condition and treatment plan as can be expected at this point. The vital signs have been stable. The patient's condition is stable and appropriate for discharge from the emergency department. The patient will pursue further outpatient evaluation with the primary care physician or other designated or consulting physician as outlined in the discharge instructions. The patient and/or caregivers are agreeable to this plan of care and follow-up instructions have been explained in detail. The patient and/or caregivers have received these instruction. The patient/and or caregivers are aware that any significant change in condition or worsening of symptoms should prompt an immediate return to this or the closest emergency department or call 911. SHARRON CHERRY was seen on 03/31/22 n the Emergency Room. At that time you were treated for an emergent condition, during your visit Laboratory, Radiology and/or other procedures may have been ordered. It is very important that you follow-up with your Primary Care Physician SLY JOHNSON within the next 24- 48 hours to review your Emergency Room visit and the final results of testing that was ordered. Some test results such as Urine Cultures, Blood Cultures, and other cultures if ordered will not be finalized for 24-48 hours. If you do not have a Primary Care Provider please call the medical records department at [phone] ext [phone] to obtain a copy of your results or you may sign into our patient portal to obtain these results by visiting us @ [email or web address] and completing the following steps: 1. Click on the Patient Portal link 2. Click the Patient Self Enrollment Link to complete the enrollment form and entering your 3. Once the enrollment form is completed you will receive an email with a temporary ID and password at the email address you provided. 4. Next choose a user name and password. Your user name must be at least 4 characters long and your password must be at least 4 characters long. 5. Choose a security question from the list and provide your answer to the question. If you already have signed into the Health Portal you may access your Health Care Information 09/09 by the following steps: 1. Login to our website @ [email or web address] 2. Enter your original user name and password. FAQS The [facility] Health Portal is an online tool that contains your Lab Results, Radiology Reports, Visit History, Discharge Instructions and Health Summary Lab and Radiology Results will not be available for 72 hours on the portal. The Portal is a secure site, passwords are encryted and URLs are re-written so they cannot be copied and pasted. You and authorized family members are the only ones who can access your Portal. Also there is a timeout feature that protects your information if you leave the Portal page open. If you have technical difficulty please use the Contact Us link on the page this will allow you to submit any questions you have regarding the Portal or you may contact the Medical Record Department at [phone] ext [phone].
[2022-03-31] MEDS ORDERED: TORAdol 30 mg Injection IM ONE (12:27)
[2022-03-31] MEDS ORDERED: TORAdol 30 mg Injection ONE (12:28)
[2022-03-31 12:59] VITALS: BP 120/70; PULSE 60
--- NOTE | 2022-03-31 18:52 | XRAY ---
Indication: Pain. Comparison: September 20, 2021 3 view right knee again demonstrates minimal medial joint space narrowing, tiny patella spurring, tiny nonspecific effusion, and small posterior fabella. No other bony, articular, or soft tissue abnormalities.
== END 2022-03-31 12:59 | disposition home or self-care (01) ==
LOC: ED 11:10
DX: M25.561 Pain in right knee (principal); Z79.899 Other long term (current) drug therapy
CPT/HCPCS: 73562; 96372; 99283; J1885

== ENCOUNTER 2022-04-10 21:39 | Emergency (ER) | payer OTHER ==
[2022-04-10 22:26] LABS: Appearance Clear (Clear); Bacteria Rare /HPF (None Seen); Bilirubin Negative (Negative); Blood Negative (Negative); Epithelial Cells Moderate /HPF (None Seen); Glucose, Urine Negative (Negative); Hyaline Casts NONE SEEN /LPF (0-2); Ketones Negative (Negative); Leukocyte Esterase Negative (Negative); Nitrite Negative (Negative); Protein,Urine Dip Negative (Negative); RBC 0-2 /HPF (0-5); Specific Gravity 1.025 (1.005-1.030); Urobilinogen 0.2 mg/dL (0.2)
[2022-04-10] MEDS ORDERED: TORAdol 30 mg Injection ONE ×2 (22:29→22:33)
[2022-04-10 22:32] LABS: ADD URINE CULTURE? NO (NO)
[2022-04-10] MEDS: TORAdol 30 mg Injection IM ONE (22:33)
--- NOTE | 2022-04-10 23:16 | ERPHSYRPT ---
- History of Present Illness Time Seen by Provider: 04/10/22 23:12 Source: patient Exam Limitations: no limitations Patient Subjective Stated Complaint: pt was working at [facility] and became pinned between a piece of equipment and a metal shelf on right rib area Triage Nursing Assessment: pt ambulated to room. pt is a&o, skin color WNL. vitals are all WNL. pt does have a small abrasion on rt lower chest (rib area), no bruising noted at this time. pt is rating her pt 7/10. Physician History: Patient's a 31-year-old female presents to our ED from [facility] for evaluation of injury to her right lateral rib. Patient states she was working when she became pinned between a piece of equipment and a metal shelf. Patient complains of pain to the right rib area. There is a soft tissue contusion just superficial to the area of involvement. No other injuries. No BHT or LOC. No neck pain. Cervical spine cleared clinically. Patient denies chest pain. No abdominal pain. No nausea vomiting or diaphoresis. Patient states she is otherwise healthy. She voices no other complaints or concerns at this time. Portions of this note were created with voice recognition technology. There may be grammatical, spelling, punctuation or sound alike errors Timing/Duration: today Severity: moderate Modifying Factors: Improves With: movement, other (Palpation to the involved area reproduces pain.) Associated Symptoms: denies symptoms Allergies/Adverse Reactions: amoxicillin Allergy (Verified 03/31/22 11:29) sulfamethoxazole [From Septra] Allergy (Verified 03/31/22 11:29) trimethoprim [From Septra] Allergy (Verified 03/31/22 11:29) Home Medications: Sertraline HCl [Zoloft] 100 mg PO BID 06/25/20 [History] Gabapentin [Neurontin ] 100 mg PO BID PRN 01/15/22 [History] Gabapentin [Neurontin ] 300 mg PO HS 01/15/22 [History] Hx Tetanus, Diphtheria Vaccination/Date Given: Yes Hx Influenza Vaccination/Date Given: No Hx Pneumococcal Vaccination/Date Given: No Travel Risk - International Travel Have you traveled outside of the country in past 3 weeks: No - Coronavirus Screening Are you exhibiting any of the following symptoms?: No Close contact with a COVID-19 positive Pt in past 14-21 Days: No - Vaccine Status Have you recieved a Covid-19 vaccination: Yes [employer]: Moderna - Vaccination Dates Date of 2cond Vaccination (if applicable): 2020 - Review of Systems Constitutional: No Symptoms, No Fever, No Chills Eyes: No Symptoms Ears, Nose, & Throat: No Symptoms Respiratory: No Symptoms, No Cough, No Dyspnea Cardiac: No Symptoms, No Chest Pain, No Edema, No Syncope Abdominal/Gastrointestinal: No Symptoms, No Abdominal Pain, No Nausea, No Vomiting, No Diarrhea Genitourinary Symptoms: No Symptoms, No Dysuria Musculoskeletal: No Symptoms, No Back Pain, No Neck Pain Skin: No Symptoms, No Rash Neurological: No Symptoms, No Dizziness, No Focal Weakness, No Sensory Changes Psychological: No Symptoms Endocrine: No Symptoms Hematologic/Lymphatic: No Symptoms Immunological/Allergic: No Symptoms All Other Systems: Reviewed and Negative - Past Medical History Pertinent Past Medical History: Yes Neurological History: No Pertinent History ENT History: No Pertinent History Cardiac History: No Pertinent History Respiratory History: No Pertinent History Endocrine Medical History: No Pertinent History Musculoskeletal History: No Pertinent History GI Medical History: Gallbladder Disease History: No Pertinent History Psycho-Social History: Anxiety, Depression Female Reproductive Disorders: No Pertinent History Other Medical History: insomnia, miscarriage - Past Surgical History Past Surgical History: Yes Neuro Surgical History: No Pertinent History Cardiac: No Pertinent History Respiratory: No Pertinent History Gastrointestinal: Cholecystectomy Genitourinary: No Pertinent History Musculoskeletal: Orthopedic Surgery Female Surgical History: No Pertinent History Other Surgical History: Carpal tunnel release surgery, right miniscus repair - Social History Smoking Status: Never smoker How long have you smoked: years Exposure to second hand smoke: Yes Drug Use: none Patient Lives Alone: Yes - Female History Hx Last Menstrual Period: 03/08/22 Hx Now: No - Nursing Vital Signs Nursing Vital Signs: Initial Vital Signs Temperature 98.2 F 04/10/22 21:50 Pulse Rate 73 04/10/22 21:50 Respiratory Rate 20 04/10/22 21:50 Blood Pressure 146/100 04/10/22 21:50 O2 Sat by Pulse Oximetry 98 04/10/22 21:50 Pain Scale Pain Intensity 7 - Physical Exam General Appearance: no apparent distress, alert Eye Exam: PERRL/EOMI, eyes nml inspection Ears, Nose, Throat Exam: normal ENT inspection, TMs normal, pharynx normal, moist mucous membranes Neck Exam: normal inspection, non-tender, supple, full range of motion Respiratory Exam: normal breath sounds, lungs clear, airway intact, No respiratory distress Cardiovascular Exam: regular rate/rhythm, normal heart sounds, normal peripheral pulses Gastrointestinal/Abdomen Exam: soft, normal bowel sounds, No tenderness, No mass Back Exam: normal inspection, normal range of motion, No CVA tenderness, No vertebral tenderness Extremity Exam: normal inspection, normal range of motion, pelvis stable Neurologic Exam: alert, oriented x 3, cooperative, normal mood/affect, nml cerebellar function, nml station & gait, sensation nml, No motor deficits Skin Exam: normal color, warm, dry, No rash Lymphatic Exam: No adenopathy SpO2 Interpretation: normal SpO2: 98 O2 Delivery: Room Air - Course Nursing assessment & vital signs reviewed: Yes - CT Exams Chest CT Interpretation: Tele-radiologist Report (No evidence of acute pulmonary disease. No acute mediastinal vascular pulmonary or chest wall injury.) Ordered Tests: Active Orders 24 hr Category Date Time Status CHEST WITHOUT CONTRAST [CT] Stat Exams 04/10/22 22:11 Taken HCG,QUALITATIVE URINE Stat Lab 04/10/22 22:15 Completed UA W/RFX UR CULTURE Stat Lab 04/10/22 22:15 Completed Medication Summary Discontinued Medications Generic Name Dose Route Start Last Admin Trade Name James PRN Reason Stop Dose Admin Ketorolac Tromethamine 60 mg 04/10/22 22:12 04/10/22 22:33 Ketorolac Tromethamine 30 Mg/Ml Inj IM 04/10/22 22:13 60 mg STAT ONE Administration Ketorolac Tromethamine Confirm 04/10/22 22:29 Ketorolac Tromethamine 30 Mg/Ml Inj Administered 04/10/22 22:30 Dose 30 mg .ROUTE .STK-MED ONE Ketorolac Tromethamine Confirm 04/10/22 22:33 Ketorolac Tromethamine 30 Mg/Ml Inj Administered 04/10/22 22:34 Dose 30 mg .ROUTE .STK-MED ONE Lab/Rad Data: Laboratory Results 04/10/22 04/10/22 Range/Units 22:15 22:15 Urine Color Yellow (Yellow) Urine Appearance Clear (Clear) Urine pH 6.0 (4.6-8.0) Ur Specific [place] 1.025 (1.005-1.030) Urine Protein Negative (Negative) Urine Glucose (UA) Negative (Negative) mg/dL Urine Ketones Negative (Negative) Urine Blood Negative (Negative) Urine Nitrite Negative (Negative) Urine Bilirubin Negative (Negative) Urine Urobilinogen 0.2 (0.2) mg/dL Ur Leukocyte Esterase Negative (Negative) U Hyaline Cast (Auto) NONE SEEN (0-2) /LPF Urine Microscopic RBC 0-2 (0-5) /HPF Urine Microscopic WBC 3-5 (0-5) /HPF Ur Epithelial Cells Moderate A (None Seen) /HPF Urine Bacteria Rare A (None Seen) /HPF Urine Culture Reflexed NO (NO) Urine HCG, Qual NEGATIVE (Negative) - Progress Progress: improved Progress Note: Patient is a 31-year-old female presents to our ED from [facility] for evaluation of injury to her right lateral rib. Patient states she was pinned between a heavy piece of equipment and a metal shelf. Injury occurred just prior to arrival. Physical exam reveals a soft tissue contusion just superficial to the right ribs 7 and 8. Patient's injury is acute. Complexity of problems addressed is low. Problem is acute uncomplicated. No critical care time. Testing ordered includes CT chest without contrast, hCG urine, urinalysis with reflex to culture. Patient received Toradol intramuscularly for pain control. Patient reassessed. Pain significantly improved. CT chest is negative for acute pathology. Patient is not . Complexity of data reviewed and analyzed is limited. Testing ordered. Testing reviewed. Patient served as an independent historian. No outside test or imaging reviewed. No discussion with outside provider. Risk of complication and/or morbidity/mortality of patient management is moderate. Patient received prescription grade intramuscular analgesic for pain control. CT chest shows no acute intrathoracic pathology. Discharge diagnoses soft tissue/rib contusion. Will discharge patient home. Patient voices no other complaints or concerns at this time. Discharge plan was based on shared decision making. Time spent in discharge is approximately 10 minutes. Vital stable. Portions of this note were created with voice recognition technology. There may be grammatical, spelling, punctuation or sound alike errors 04/10/22 23:25 Counseled pt/family regarding: lab results, diagnosis, need for follow-up, rad results - Departure Departure Disposition: Home Clinical Impression: Rib contusion, Contusion of soft tissue Condition: Stable Critical Care Time: No Referrals: SLY JOHNSON MD [Primary Care Provider] - Follow up/PCP as directed Instructions: Bruised Rib (DC) Additional Instructions: Discharge/Care Plan SHARRON CHERRY was seen on 04/10/22 in the Emergency Room. The patient was counseled regarding Diagnosis,Lab results, Imaging studies, need for follow up and when to return to the Emergency Room. Prescriptions given: Discharge Note I have spoken with the patient and/or caregivers. I have explained the patient's condition, diagnosis and treatment plan based on the information available to me at this time. I have answered the patient's and/or caregiver's questions and addressed any concerns. The patient and/or caregivers have as good understanding of the patient's diagnosis, condition and treatment plan as can be expected at this point. The vital signs have been stable. The patient's condition is stable and appropriate for discharge from the emergency department. The patient will pursue further outpatient evaluation with the primary care physician or other designated or consulting physician as outlined in the discharge instructions. The patient and/or caregivers are agreeable to this plan of care and follow-up instructions have been explained in detail. The patient and/or caregivers have received these instruction. The patient/and or caregivers are aware that any significant change in condition or worsening of symptoms should prompt an immediate return to this or the closest emergency department or call 911.
[2022-04-10 23:27] VITALS: BP 138/86; PULSE 56
[2022-04-10 23:30] VITALS: O2SAT 98
--- NOTE | 2022-04-11 08:34 | XRAY ---
Indication: Right rib pain following trauma. Multiple contiguous images obtained through the chest without contrast. Comparison: None Lungs inflated and clear. Heart not enlarged. Aorta is normal in course and caliber. No pathologic mediastinal lymphadenopathy. Bony thorax intact with mild degenerative changes throughout the spine. Limited upper abdomen demonstrates fatty liver, 15.1 m splenomegaly, and cholecystectomy clips. Impression: Fatty liver and splenomegaly. Remaining CT chest without contrast exam is normal. Comment: Preliminary interpretation made by [facility]. No critical discrepancy.
== END 2022-04-10 23:25 | disposition home or self-care (01) ==
LOC: ED 21:39
DX: S20.211A Contusion of right front wall of thorax, initial encounter (principal); W23.0XXA Caught, crushed, jammed, or pinched between moving objects, initial encounter; Y92.512 Supermarket, store or market as the place of occurrence of the external cause; Y99.0 Civilian activity done for income or pay; R07.81 Pleurodynia; Z79.899 Other long term (current) drug therapy
CPT/HCPCS: 71250; 81001; 81025; 96372; 99283; J1885

== ENCOUNTER 2022-04-24 00:06 | Emergency (ER) | payer OTHER ==
[2022-04-24 01:05] LABS: Absolute Neutrophil Ct (ANC) 6.03 x10^3/uL (1.4-6.9); BASOPHIL % 0.5 % (0.0-0.4); Basophil (Absolute #) 0.05 x10^3/uL (0-0.4); Eosinophil (Absolute #) 0.31 x10^3/uL (0-0.5); Hematocrit 38.5 % (35-47); IMMATURE GRAN # 0.08 x10^3u/L (0.00-0.03); IMMATURE GRAN % 0.8 % (0.00-0.4); Lymphocyte (Absolute #) 3.45 x10^3/uL (1.0-4.6); Lymphocytes % 33.2 % (24.0-44.0); Mean Cell Volume 82.6 fL (78-100); Mean Corpuscular Hemoglobin 25.8 pg (26-32); Mean Corpuscular Hgb Concent. 31.2 g/dL (32-36); Mean Platelet Volume 8.6 fL (7.5-11.0); Monocyte (Absolute #) 0.47 x10^3/uL (0.0-1.3); Monocytes % 4.5 % (0.0-12.0); Platelet Count 318 x10^3/uL (150-450); Red Blood Count 4.66 x10^6/uL (4.1-5.4); White Blood Count 10.4 x10^3/uL (4.0-10.5)
[2022-04-24 01:18] LABS: ALBUMIN 3.9 g/dL (3.5-5.0); ALKALINE PHOSPHATASE 69 U/L (38-126); ANION GAP 9.8 MEQ/L (5-15); BLOOD UREA NITROGEN 17 mg/dL (7-17); CHLORIDE 107 mmol/L (98-107); Calcium 8.8 mg/dL (8.4-10.2); Carbon Dioxide 27 mmol/L (22-30); Creatinine 1 0.64 mg/dL (0.52-1.04); EST GLOMERULAR FILTRATION RATE > 60.0 ML/MIN; Glucose 102 mg/dL (74-106); SGOT/AST 25 U/L (14-36); SGPT/ALT 32 U/L (0-35); SODIUM 140 mmol/L (137-145); Total Protein 7.4 g/dL (6.3-8.2)
[2022-04-24 01:19] LABS: ACETAMINOPHEN < 10 ug/ml (10-30); ETHYL ALCOHOL < 10 mg/dL (0-10); SALICYLATE < 1.0 mg/dL (2-20)
[2022-04-24 01:27] LABS: Appearance Cloudy (Clear); Bacteria None Seen /HPF (None Seen); Bilirubin Negative (Negative); Blood Large (Negative); Epithelial Cells Few /HPF (None Seen); Glucose, Urine Negative (Negative); Hyaline Casts NONE SEEN /LPF (0-2); Ketones Negative (Negative); Leukocyte Esterase Trace (Negative); Nitrite Negative (Negative); Ph 6.5 (4.6-8.0); Protein,Urine Dip Trace (Negative); RBC >100 /HPF (0-5); Specific Gravity 1.015 (1.005-1.030); Urobilinogen 0.2 mg/dL (0.2)
[2022-04-24 01:30] LABS: ADD URINE CULTURE? YES (NO)
[2022-04-24 01:38] LABS: Amphetamine,Urine NEGATIVE (NEGATIVE); Barbiturate,Urine NEGATIVE (NEGATIVE); Cocaine,Urine NEGATIVE (NEGATIVE); Methadone,Urine NEGATIVE (NEGATIVE); Opiate,Urine NEGATIVE (NEGATIVE); PCP,Urine NEGATIVE (NEGATIVE); THC,Urine POSITIVE (NEGATIVE)
[2022-04-24 01:42] LABS: Benzodiazepine,Urine NEGATIVE (NEGATIVE)
[2022-04-24 02:12] LABS: INFLUENZA A NEGATIVE (NEGATIVE); INFLUENZA B NEGATIVE (NEGATIVE); RESPIRATORY SYNCTIAL VIRUS NEGATIVE (Negative); SARS-CoV-2 Xpert Express NEGATIVE (NEGATIVE)
[2022-04-24 03:06] VITALS: BP 115/89; O2SAT 98
--- NOTE | 2022-04-24 03:11 | ERPHSYRPT ---
- History of Present Illness Time Seen by Provider: 04/24/22 00:20 Source: patient Exam Limitations: no limitations Patient Subjective Stated Complaint: Pt reports "I don't know why I am here." Pts spouse reports "at around 0930 or 1000 she was sitting in the chair with a blank stare for a while. She doesn't remember driving home from work and it is like she is missing chunks of time. About a half hour ago she started crying uncontrollably for no reason." Triage Nursing Assessment: Pt alert and oriented x3, crying and speaking in clear/concise one to three worded sentences. No apparent respiratory distress. Skin w/p/d. Ambulated to ED cot without difficulty. RAJ. Physician History: Patient 31-year-old female presents to our ED with her for evaluation of confusion. states he is observed these odd behaviors between 930 and 10 AM. He reports patient was sitting in a chair with a blank stare on her face. Patient was not very conversant. Patient reports not remembering driving home from work. Patient states like chunks of time are missing from her memory. Patient currently in the room crying. Patient does not know why she is crying. Patient denies pain. No nausea vomiting. No diarrhea. No rash. Symptoms are constant. Symptoms are moderate in intensity. No specific worsening or improving factors. Patient denies a history of the same. Patient voices no other complaints or concerns at this time. Portions of this note were created with voice recognition technology. There may be grammatical, spelling, punctuation or sound alike errors Timing/Duration: today Severity: moderate Modifying Factors: Improves With: nothing Associated Symptoms: denies symptoms Allergies/Adverse Reactions: amoxicillin Allergy (Verified 04/24/22 00:28) sulfamethoxazole [From Septra] Allergy (Verified 04/24/22 00:28) trimethoprim [From Septra] Allergy (Verified 04/24/22 00:28) Home Medications: Sertraline HCl [Zoloft] 100 mg PO BID 06/25/20 [History] Gabapentin [Neurontin ] 100 mg PO BID PRN 01/15/22 [History] Gabapentin [Neurontin ] 300 mg PO HS 01/15/22 [History] Hx Tetanus, Diphtheria Vaccination/Date Given: Yes Hx Influenza Vaccination/Date Given: No Hx Pneumococcal Vaccination/Date Given: No Travel Risk - International Travel Have you traveled outside of the country in past 3 weeks: No - Coronavirus Screening Are you exhibiting any of the following symptoms?: No Close contact with a COVID-19 positive Pt in past 14-21 Days: No - Vaccine Status Have you recieved a Covid-19 vaccination: Yes 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 - Vaccination Dates Date of 2cond Vaccination (if applicable): 2020 - Review of Systems Constitutional: No Symptoms, No Fever, No Chills Eyes: No Symptoms Ears, Nose, & Throat: No Symptoms Respiratory: No Symptoms, No Cough, No Dyspnea Cardiac: No Symptoms, No Chest Pain, No Edema, No Syncope Abdominal/Gastrointestinal: No Symptoms, No Abdominal Pain, No Nausea, No Vomiting, No Diarrhea Genitourinary Symptoms: No Symptoms, No Dysuria Musculoskeletal: No Symptoms, No Back Pain, No Neck Pain Skin: No Symptoms, No Rash Neurological: No Symptoms, No Dizziness, No Focal Weakness, No Sensory Changes Psychological: No Symptoms Endocrine: No Symptoms Hematologic/Lymphatic: No Symptoms Immunological/Allergic: No Symptoms All Other Systems: Reviewed and Negative - Past Medical History Pertinent Past Medical History: Yes Neurological History: No Pertinent History ENT History: No Pertinent History Cardiac History: No Pertinent History Respiratory History: No Pertinent History Endocrine Medical History: No Pertinent History Musculoskeletal History: No Pertinent History GI Medical History: Gallbladder Disease History: No Pertinent History Psycho-Social History: Anxiety, Depression Female Reproductive Disorders: No Pertinent History Other Medical History: insomnia, miscarriage - Past Surgical History Past Surgical History: Yes Neuro Surgical History: No Pertinent History Cardiac: No Pertinent History Respiratory: No Pertinent History Gastrointestinal: Cholecystectomy Genitourinary: No Pertinent History Musculoskeletal: Orthopedic Surgery Female Surgical History: No Pertinent History Other Surgical History: Carpal tunnel release surgery, right miniscus repair - Social History Smoking Status: Former smoker How long have you smoked: years Exposure to second hand smoke: Yes Drug Use: none Patient Lives Alone: No - Female History Hx Last Menstrual Period: 04/23/22 Hx Now: No - Nursing Vital Signs Nursing Vital Signs: Initial Vital Signs Temperature 98.6 F 04/24/22 00:13 Pulse Rate 64 04/24/22 00:13 Respiratory Rate 16 04/24/22 00:13 Blood Pressure 157/96 04/24/22 00:13 O2 Sat by Pulse Oximetry 100 04/24/22 00:13 Pain Scale Pain Intensity 0 - Physical Exam General Appearance: alert, other (Patient sitting up in bed crying for no apparent reason.) Eye Exam: PERRL/EOMI, eyes nml inspection Ears, Nose, Throat Exam: normal ENT inspection, TMs normal, pharynx normal, moist mucous membranes Neck Exam: normal inspection, non-tender, supple, full range of motion Respiratory Exam: normal breath sounds, lungs clear, airway intact, No respiratory distress Cardiovascular Exam: regular rate/rhythm, normal heart sounds, normal peripheral pulses Gastrointestinal/Abdomen Exam: soft, normal bowel sounds, No tenderness, No mass Back Exam: normal inspection, normal range of motion, No CVA tenderness, No vertebral tenderness Extremity Exam: normal inspection, normal range of motion, pelvis stable Neurologic Exam: alert, oriented x 3, cooperative, normal mood/affect, sensation nml, No motor deficits Skin Exam: normal color, warm, dry, No rash Lymphatic Exam: No adenopathy SpO2 Interpretation: normal SpO2: 98 O2 Delivery: Room Air - Course Nursing assessment & vital signs reviewed: Yes EKG Interpreted by Me: RATE (60), Sinus Rhythm, NORMAL AXIS, NORMAL INTERVALS - CT Exams Head CT Interpretation: Tele-radiologist Report (No acute intracranial abnormality) Ordered Tests: Active Orders 24 hr Category Date Time Status Mixed Animal Veterinarian STAT Care 04/24/22 00:31 Active EKG-ER Only STAT Care 04/24/22 00:36 Active IV Insertion STAT Care 04/24/22 00:30 Active Pulse Oximetry (ED) STAT Care 04/24/22 00:30 Active HEAD WITHOUT CONTRAST [CT] Stat Exams 04/24/22 00:33 Taken ACETAMINOPHEN Stat Lab 04/24/22 00:59 Completed CBC W DIFF Stat Lab 04/24/22 00:59 Completed CMP Stat Lab 04/24/22 00:59 Completed CULTURE,URINE Stat Lab 04/24/22 01:13 Received ETHYL ALCOHOL Stat Lab 04/24/22 00:59 Completed SALICYLATE Stat Lab 04/24/22 00:59 Completed TROPONIN Q4H Lab 04/24/22 00:59 Completed TROPONIN Q4H Lab 04/24/22 04:45 Ordered TROPONIN Q4H Lab 04/24/22 08:45 Ordered TSH [TSH, 3RD Generation] Stat Lab 04/24/22 00:59 Completed UA W/RFX UR CULTURE Stat Lab 04/24/22 01:13 Completed Urine Triage Profile Stat Lab 04/24/22 01:13 Completed Transfer Order Routine Transfer 04/24/22 Ordered Medication Summary Generic Name Dose Route Start Last Admin Trade Name James PRN Reason Stop Dose Admin Nitrofurantoin Macrocrystals 100 mg 04/24/22 03:16 Nitrofurantoin Macro 100 Mg Capsule PO 04/24/22 03:17 STAT ONE Lab/Rad Data: Laboratory Result Diagrams 04/24/22 00:59 04/24/22 00:59 Laboratory Results 04/24/22 04/24/22 04/24/22 Range/Units 01:34 01:13 01:13 WBC (4.0-10.5) x10^3/uL RBC (4.1-5.4) x10^6/uL Hgb (12.0-16.0) g/dL Hct (35-47) % MCV (78-100) fL MCH (26-32) pg MCHC (32-36) g/dL RDW (11.5-14.0) % Plt Count (150-450) x10^3/uL MPV (7.5-11.0) fL Gran % (36.0-66.0) % Immature Gran % (Auto) (0.00-0.4) % Nucleat RBC Rel Count (0.00-0.1) % Eos # (Auto) (0-0.5) x10^3/uL Immature Gran # (Auto) (0.00-0.03) x10^3u/L Absolute Lymphs (auto) (1.0-4.6) x10^3/uL Absolute Monos (auto) (0.0-1.3) x10^3/uL Absolute Nucleated RBC (0.00-0.01) x10^3u/L Lymphocytes % (24.0-44.0) % Monocytes % (0.0-12.0) % Eosinophils % (0.00-5.0) % Basophils % (0.0-0.4) % Absolute Granulocytes (1.4-6.9) x10^3/uL Basophils # (0-0.4) x10^3/uL Sodium (137-145) mmol/L Potassium (3.5-5.1) mmol/L Chloride (98-107) mmol/L Carbon Dioxide (22-30) mmol/L Anion Gap (5-15) MEQ/L BUN (7-17) mg/dL Creatinine (0.52-1.04) mg/dL Estimated GFR ML/MIN Glucose (74-106) mg/dL Calcium (8.4-10.2) mg/dL Total Bilirubin (0.2-1.3) mg/dL AST (14-36) U/L ALT (0-35) U/L Alkaline Phosphatase (38-126) U/L Troponin I (0.000-0.034) ng/mL Serum Total Protein (6.3-8.2) g/dL Albumin (3.5-5.0) g/dL TSH 3rd Generation (0.47-4.68) mIU/L Urine Color Red A (Yellow) Urine Appearance Cloudy A (Clear) Urine pH 6.5 (4.6-8.0) Ur Specific [place] 1.015 (1.005-1.030) Urine Protein Trace A (Negative) Urine Glucose (UA) Negative (Negative) mg/dL Urine Ketones Negative (Negative) Urine Blood Large A (Negative) Urine Nitrite Negative (Negative) Urine Bilirubin Negative (Negative) Urine Urobilinogen 0.2 (0.2) mg/dL Ur Leukocyte Esterase Trace A (Negative) U Hyaline Cast (Auto) NONE SEEN (0-2) /LPF Urine Microscopic RBC >100 A (0-5) /HPF Urine Microscopic WBC 6-10 A (0-5) /HPF Ur Epithelial Cells Few (None Seen) /HPF Urine Bacteria None Seen (None Seen) /HPF Urine Culture Reflexed YES (NO) Salicylates (2-20) mg/dL Urine Opiates Level NEGATIVE (NEGATIVE) Ur Methadone NEGATIVE (NEGATIVE) Acetaminophen (10-30) ug/ml Urine Barbiturates NEGATIVE (NEGATIVE) Ur Phencyclidine (PCP) NEGATIVE (NEGATIVE) Urine Amphetamine NEGATIVE (NEGATIVE) U Benzodiazepine Level NEGATIVE (NEGATIVE) Urine Cocaine NEGATIVE (NEGATIVE) Urine Marijuana (THC) POSITIVE (NEGATIVE) Ethyl Alcohol (0-10) mg/dL Influenza Type A Ag NEGATIVE (NEGATIVE) Influenza Type B Ag NEGATIVE (NEGATIVE) RSV (PCR) NEGATIVE (Negative) SARS-CoV-2 (PCR) NEGATIVE (NEGATIVE) 04/24/22 04/24/22 04/24/22 Range/Units 00:59 00:59 00:59 WBC (4.0-10.5) x10^3/uL RBC (4.1-5.4) x10^6/uL Hgb (12.0-16.0) g/dL Hct (35-47) % MCV (78-100) fL MCH (26-32) pg MCHC (32-36) g/dL RDW (11.5-14.0) % Plt Count (150-450) x10^3/uL MPV (7.5-11.0) fL Gran % (36.0-66.0) % Immature Gran % (Auto) (0.00-0.4) % Nucleat RBC Rel Count (0.00-0.1) % Eos # (Auto) (0-0.5) x10^3/uL Immature Gran # (Auto) (0.00-0.03) x10^3u/L Absolute Lymphs (auto) (1.0-4.6) x10^3/uL Absolute Monos (auto) (0.0-1.3) x10^3/uL Absolute Nucleated RBC (0.00-0.01) x10^3u/L Lymphocytes % (24.0-44.0) % Monocytes % (0.0-12.0) % Eosinophils % (0.00-5.0) % Basophils % (0.0-0.4) % Absolute Granulocytes (1.4-6.9) x10^3/uL Basophils # (0-0.4) x10^3/uL Sodium (137-145) mmol/L Potassium (3.5-5.1) mmol/L Chloride (98-107) mmol/L Carbon Dioxide (22-30) mmol/L Anion Gap (5-15) MEQ/L BUN (7-17) mg/dL Creatinine (0.52-1.04) mg/dL Estimated GFR ML/MIN Glucose (74-106) mg/dL Calcium (8.4-10.2) mg/dL Total Bilirubin (0.2-1.3) mg/dL AST (14-36) U/L ALT (0-35) U/L Alkaline Phosphatase (38-126) U/L Troponin I < 0.012 (0.000-0.034) ng/mL Serum Total Protein (6.3-8.2) g/dL Albumin (3.5-5.0) g/dL TSH 3rd Generation 1.670 (0.47-4.68) mIU/L Urine Color (Yellow) Urine Appearance (Clear) Urine pH (4.6-8.0) Ur Specific [place] (1.005-1.030) Urine Protein (Negative) Urine Glucose (UA) (Negative) mg/dL Urine Ketones (Negative) Urine Blood (Negative) Urine Nitrite (Negative) Urine Bilirubin (Negative) Urine Urobilinogen (0.2) mg/dL Ur Leukocyte Esterase (Negative) U Hyaline Cast (Auto) (0-2) /LPF Urine Microscopic RBC (0-5) /HPF Urine Microscopic WBC (0-5) /HPF Ur Epithelial Cells (None Seen) /HPF Urine Bacteria (None Seen) /HPF Urine Culture Reflexed (NO) Salicylates < 1.0 L (2-20) mg/dL Urine Opiates Level (NEGATIVE) Ur Methadone (NEGATIVE) Acetaminophen < 10 L (10-30) ug/ml Urine Barbiturates (NEGATIVE) Ur Phencyclidine (PCP) (NEGATIVE) Urine Amphetamine (NEGATIVE) U Benzodiazepine Level (NEGATIVE) Urine Cocaine (NEGATIVE) Urine Marijuana (THC) (NEGATIVE) Ethyl Alcohol < 10 (0-10) mg/dL Influenza Type A Ag (NEGATIVE) Influenza Type B Ag (NEGATIVE) RSV (PCR) (Negative) SARS-CoV-2 (PCR) (NEGATIVE) 04/24/22 04/24/22 Range/Units 00:59 00:59 WBC 10.4 (4.0-10.5) x10^3/uL RBC 4.66 (4.1-5.4) x10^6/uL Hgb 12.0 (12.0-16.0) g/dL Hct 38.5 (35-47) % MCV 82.6 (78-100) fL MCH 25.8 L (26-32) pg MCHC 31.2 L (32-36) g/dL RDW 14.0 (11.5-14.0) % Plt Count 318 (150-450) x10^3/uL MPV 8.6 (7.5-11.0) fL Gran % 58.0 (36.0-66.0) % Immature Gran % (Auto) 0.8 H (0.00-0.4) % Nucleat RBC Rel Count 0.0 (0.00-0.1) % Eos # (Auto) 0.31 (0-0.5) x10^3/uL Immature Gran # (Auto) 0.08 H (0.00-0.03) x10^3u/L Absolute Lymphs (auto) 3.45 (1.0-4.6) x10^3/uL Absolute Monos (auto) 0.47 (0.0-1.3) x10^3/uL Absolute Nucleated RBC 0.00 (0.00-0.01) x10^3u/L Lymphocytes % 33.2 (24.0-44.0) % Monocytes % 4.5 (0.0-12.0) % Eosinophils % 3.0 (0.00-5.0) % Basophils % 0.5 (0.0-0.4) % Absolute Granulocytes 6.03 (1.4-6.9) x10^3/uL Basophils # 0.05 (0-0.4) x10^3/uL Sodium 140 (137-145) mmol/L Potassium 4.0 (3.5-5.1) mmol/L Chloride 107 (98-107) mmol/L Carbon Dioxide 27 (22-30) mmol/L Anion Gap 9.8 (5-15) MEQ/L BUN 17 (7-17) mg/dL Creatinine 0.64 (0.52-1.04) mg/dL Estimated GFR > 60.0 ML/MIN Glucose 102 (74-106) mg/dL Calcium 8.8 (8.4-10.2) mg/dL Total Bilirubin 0.20 (0.2-1.3) mg/dL AST 25 (14-36) U/L ALT 32 (0-35) U/L Alkaline Phosphatase 69 (38-126) U/L Troponin I (0.000-0.034) ng/mL Serum Total Protein 7.4 (6.3-8.2) g/dL Albumin 3.9 (3.5-5.0) g/dL TSH 3rd Generation (0.47-4.68) mIU/L Urine Color (Yellow) Urine Appearance (Clear) Urine pH (4.6-8.0) Ur Specific [place] (1.005-1.030) Urine Protein (Negative) Urine Glucose (UA) (Negative) mg/dL Urine Ketones (Negative) Urine Blood (Negative) Urine Nitrite (Negative) Urine Bilirubin (Negative) Urine Urobilinogen (0.2) mg/dL Ur Leukocyte Esterase (Negative) U Hyaline Cast (Auto) (0-2) /LPF Urine Microscopic RBC (0-5) /HPF Urine Microscopic WBC (0-5) /HPF Ur Epithelial Cells (None Seen) /HPF Urine Bacteria (None Seen) /HPF Urine Culture Reflexed (NO) Salicylates (2-20) mg/dL Urine Opiates Level (NEGATIVE) Ur Methadone (NEGATIVE) Acetaminophen (10-30) ug/ml Urine Barbiturates (NEGATIVE) Ur Phencyclidine (PCP) (NEGATIVE) Urine Amphetamine (NEGATIVE) U Benzodiazepine Level (NEGATIVE) Urine Cocaine (NEGATIVE) Urine Marijuana (THC) (NEGATIVE) Ethyl Alcohol (0-10) mg/dL Influenza Type A Ag (NEGATIVE) Influenza Type B Ag (NEGATIVE) RSV (PCR) (Negative) SARS-CoV-2 (PCR) (NEGATIVE) - Progress Progress: improved Progress Note: Patient is of sound mind. Patient is appropriate to make informed and independent medical decisions. Patient understands that leaving AGAINST MEDICAL ADVICE can result in delayed diagnosis, increased risk of morbidity, mortality, short and long-term disability including . In spite of these risks, patient has decided to leave AGAINST MEDICAL ADVICE. Patient understands that she may return to our ED at any point if she reconsiders. Patient agrees to f ollow-up with his or her primary care doctor within 48 hours for reevaluation. Patient voices no other complaints or concerns at this time. We will release patient AGAINST MEDICAL ADVICE per their request. 04/24/22 03:23 Patient 31-year-old female presents to our ED for evaluation of confusion. Patient denies history of the same. Work-up includes EKG, CT head, aspirin alcohol acetaminophen, CBC CMP, 6 COVID test, TSH, UA and urine triage. EKG is normal sinus rhythm. CT head is nonremarkable. Patient's toxicology screen positive for marijuana. Acetaminophen alcohol and aspirin were negative. CBC CMP negative. COVID-negative. TSH within normal limits. Urinalysis positive for UTI. Patient also has hematuria however patient currently on her menstrual period. Telemetry neuro consult completed. Telemetry neuro consult advised admission for MRI and other detailed studies. However patient declined. Patient wants to go home. Patient and her child are here waiting for her. Patient advised that her testing was positive for marijuana. Patient states she had similar symptoms in the past after using marijuana. Patient did not know she would have marijuana in her system. Patient states that she had pain on her right flank from her injury at work. Patient took what she thought was CBD laced gummy bears for pain. Patient states the gummy bear was likely laced with marijuana which caused similar symptoms in the past. Complexity of problems addressed is moderate. Acute problem with systemic manifestations. No critical care time. Complexity of data reviewed and analyzed is moderate. Test ordered and reviewed. Patient evaluated by teleneurologist. Documentation/physical exam created by the teleneurologist was reviewed by Dr. Li. Case discussed with Dr. Lindsey our hospitalist who accepts admission to observation. Risk of complication and or morbidity/mortality of patient management is moderate. Patient received Patient left AMA. Patient left AMA as she believes that her symptoms are due to marijuana laced gummy bears. Patient states that she has family that she needs to attend to. A prescription for Macrobid was forwarded to patient's pharmacy for UTI. Portions of this note were created with voice recognition technology. There may be grammatical, spelling, punctuation or sound alike errors 04/24/22 03:35 Discussed with : Other (Case discussed with Dr. Wylie and hospitalist who accepts admission to observation.) Will see patient in: hospital (observation) Counseled pt/family regarding: drug and/or alcohol abuse, lab results, diagnosis, rad results - Departure Departure Disposition: Observation Clinical Impression: Normal menstrual period, UTI (urinary tract infection), Marijuana use, Confusion Condition: Stable Critical Care Time: No Referrals: SLY JOHNSON MD [Primary Care Provider] - Follow up/PCP as directed Additional Instructions: Discharge/Care Plan SHARRON CHERRY was seen on 04/24/22 in the Emergency Room. The patient was counseled regarding Diagnosis,Lab results, Imaging studies, need for follow up and when to return to the Emergency Room. Prescriptions given: Discharge Note I have spoken with the patient and/or caregivers. I have explained the patient's condition, diagnosis and treatment plan based on the information available to me at this time. I have answered the patient's and/or caregiver's questions and addressed any concerns. The patient and/or caregivers have as good understanding of the patient's diagnosis, condition and treatment plan as can be expected at this point. The vital signs have been stable. The patient's condition is stable and appropriate for discharge from the emergency department. The patient will pursue further outpatient evaluation with the primary care physician or other designated or consulting physician as outlined in the discharge instructions. The patient and/or caregivers are agreeable to this plan of care and follow-up instructions have been explained in detail. The patient an d/or caregivers have received these instruction. The patient/and or caregivers are aware that any significant change in condition or worsening of symptoms should prompt an immediate return to this or the closest emergency department or call 911. Prescriptions: Nitrofurantoin Macro 100 mg [Macrobid 100MG Capsule] 100 mg PO BID 7 Days #14 cap
[2022-04-24] MEDS ORDERED: Macrobid 100MG Capsule PO ONE (03:16)
[2022-04-24 03:19] VITALS: PULSE 73
--- NOTE | 2022-04-24 08:53 | XRAY ---
Indication: Frontal headache. Multiple contiguous axial images obtained through the head without contrast. Comparison: None Normal appearing brain parenchyma, ventricles, and bony calvarium. Visualized paranasal sinuses and mastoid air cells are clear. Impression: Normal CT head without contrast exam. Comment: Preliminary interpretation made by [facility]. No critical discrepancy.
== END 2022-04-24 03:24 | disposition left against medical advice (07) ==
LOC: ED 00:06
DX: N39.0 Urinary tract infection, site not specified (principal); F12.90 Cannabis use, unspecified, uncomplicated; R41.0 Disorientation, unspecified; Z79.899 Other long term (current) drug therapy
CPT/HCPCS: 0241U; 36415; 70450; 80053; 80307; 81001; 82077; 84443; 84484; 85025; 87086; 93005; 93041; 94760; 99284; Q3014